=== PATIENT | male | born 2005 | race Caucasian/White ===

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

== ENCOUNTER 2025-06-09 01:54 | Emergency (ER) | payer BC, SELFPAY ==
--- NOTE | ~2025-06-09 | XR_ITS ---
Examination: XR finger 3rd LT min 2V Clinical History: LEFT 3RD DIGIT tip amputation Comparison: None Technique: 4 views left third finger Findings/impression: 1. Soft tissue amputation distal third finger, with minimal amputation/involvement of distal bony tuft. Reviewed, dictated and finalized at location R. [employer]
[2025-06-09 01:54] VITALS: BP 136/82; PULSE 69; RESP 20; TEMP 36.8; O2SAT 98
--- NOTE | 2025-06-09 01:55 | PC.NURSE ---
TOURNIQUET PLACED TO LEFT HAND, 3RD DIGIT
--- NOTE | 2025-06-09 02:07 | PC.NURSE ---
WOUND CLEANED BY THANH GARZA. TOURNIQUET IN PLACE TO 3RD DIGIT. DRESSING IN PLACE TO TIP OF FINGER. PATIENT HAS ARM ELEVATED ABOVE HIS HEART. CALL LIGHT IN REACH.
--- NOTE | 2025-06-09 02:12 | ED.WOUNDLAC ---
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 The patient has increased pain level about an 8/10 no other injuries noted vitals are stable. Onset (ago): hour(s) Extremity Location: Left: hand (3rd finger tip of the amputation) Place: work Patient tetanus UTD: No Context: accidental Related Data Home Medications ?Medication ?Instructions ?Recorded ?Confirmed ?Last Taken ?Type No Home Medications 01/08/22 01/08/22 Unknown History Allergies Allergy/AdvReac Type Severity Reaction Status Date / Time No Known Allergies Allergy Verified 06/09/25 02:28 Review of Systems Review of Systems: All systems reviewed & are unremarkable except as noted in HPI and below PMFSH Past Medical History Medical History No active medical problems Surgical History Surgical History H/O shoulder surgery right Social History Social History Smoking status: Current every day smoker Tobacco type: e-cigarettes/vaping Alcohol intake: never Substance use: never Exam Const: General: healthy appearing and no acute distress Nutritional Appearance: well nourished Orientation/consciousness: patient oriented x3 Resp: Effort & Inspection: normal respiratory effort Auscultation: clear to auscultation bilaterally Cardio: Rate: regular rate Rhythm: regular rhythm GI: GI Palp: Yes Soft to palpation Skin: Wounds: wounds noted Other: Tip of his left 3rd finger amputated tourniquet placed to start bleeding approximately 2cm tip of his left 3rd finger amputated Course Course Emergency Course: Medical decision making narrative: Patient was evaluated by myself for the emergency department. History obtained from the patient who is an independent historian physical exam performing witnessed by nurse. Patient updated with his tetanus, antibiotic was started with cefazolin and patient was given Toradol for pain control. Repeat assessment: Patient doing well on repeat exam no acute distress Symptoms stable since arrival to the ED tourniquet placed on the left 3rd finger to stop bleeding. Patient agrees with discussion after shared medical decision and agrees with transfer. Patient accepted for transfer to [facility] ER to ER transfer accepted by Dr. Toledo All questions answered to the patient's satisfaction. Vital Signs Vital signs: Vital Signs Temperature 36.8 C 06/09/25 01:54 Pulse Rate 69 06/09/25 01:54 Respiratory Rate 20 06/09/25 01:54 Blood Pressure 136/82 06/09/25 01:54 Pulse Oximetry 98 06/09/25 01:54 Oxygen Delivery Room Air 06/09/25 01:54 Temperature 36.8 C 06/09/25 01:54 Pulse Rate 69 06/09/25 01:54 Respiratory Rate 20 06/09/25 01:54 Blood Pressure 136/82 06/09/25 01:54 Pulse Oximetry 98 06/09/25 01:54 Oxygen Delivery Room Air 06/09/25 01:54 Critical Care Time Critical Care Time Critical Care Time: No Discharge Plan Discharge Clinical Impression: Amputation of finger of left hand Patient Disposition: Acute Care Hospital Condition: Stable Patient Language: Mexican Prescriptions: No Action No Home Medications Follow-up/Referrals: Yehuda Benitez DO [Primary Care Provider, [facility]] Time of Disposition: 02:31
[2025-06-09] MEDS: TETANUS,DIPHTHERIA,AC PERTUSSIS ADULT 0.5 ML (ADACEL) IM (02:13)
[2025-06-09] MEDS: KETOROLAC (*BKC) 60 MG/2 ML VIAL IM (02:18)
--- NOTE | 2025-06-09 02:23 | PC.NURSE ---
PATIENT HAS BEEN MEDICATED PER SEP. WALKING AROUND THE PHONE TALKING ON CELL PHONE.
--- NOTE | 2025-06-09 02:27 | PC.NURSE ---
ELIZABETH WITH XRAY AT THE BEDSIDE
--- NOTE | 2025-06-09 02:40 | PC.NURSE ---
PATIENT IS RESTING ON STRETCHER WITH LEFT HAND ELEVATED. CURRENTLY DENIES ANY NEEDS. CALL LIGHT IN REACH.
[2025-06-09 03:04] VITALS: BP 120/75; PULSE 58; RESP 18; TEMP 37.4; O2SAT 100
[2025-06-09 03:16] VITALS: BP 120/75; PULSE 58; RESP 18; TEMP 37.4; O2SAT 100
== END 2025-06-09 03:16 | disposition short-term general hospital (02) ==
PROVIDERS: Emergency Provider Emergency Medicine; PCP Family Medicine
DX: S68.123A Partial traumatic metacarpophalangeal amputation of left middle finger, initial encounter (principal); F17.290 Nicotine dependence, other tobacco product, uncomplicated; W31.89XA Contact with other specified machinery, initial encounter; Z23 Encounter for immunization
CPT/HCPCS: 73140; 90471; 90715; 96372; 99285; J0690; J1885